=== PATIENT | female | born 1975 | race Caucasian/White ===

== ENCOUNTER 2016-09-01 08:52 | Day surgery (SDC) | payer BC ==
[2016-08-31 17:51] VITALS: BMI 34.0
--- NOTE | 2016-09-01 10:07 | HP ---
[facility]ellite [facility] - Chief Complaint Chief Complaint: Abdominal pain History of Present Illness: 41 female seen in the office for episode of abdominal pain for which she had pressented to the ER in 06/2016. + large gallstone with biliary colic History Source: Patient Limitations to Obtaining History: No Limitations - Past Medical History Allergies/Adverse Reactions: Allergies Allergy/AdvReac Type Severity Reaction Status Date / Time Iodinated Contrast Media - Allergy Severe Rash Verified 08/31/16 17:44 Oral and methotrexate [Methotrexate] Allergy Severe Rash Verified 08/31/16 17:44 ...LMP: 07/23/16 Dermatology: Yes: Psoriasis - Current Medications Current Medications: Home Medications Medication Instructions Recorded Etanercept [Enbrel] 25 mg SQ WEEKLY 07/22/16 Acetaminophen W/ Codeine #3 1 tab PO Q6H #28 tablet MDD 4 09/01/16 [Tylenol # 3 -] Docusate Sodium [Colace -] 100 mg PO TID #90 capsule 09/01/16 Satellite Physical Exam - Physical Examination General Appearance: Well Nourished Lung: Clear to auscultation Heart: Regular rate & rhythm Abdomen: Soft, No tenderness Neurological: Alert, Oriented Satellite Impression/Plan - Impression/Plan Impression: History of biliary colic, large gallstone Operative Procedure: Robotic laparoscopic possible open cholecystectomy Date to be Performed: 09/01/16
[2016-09-01] MEDS ORDERED: BUPIVACAINE HCL/PF 0.5% (5MG/ML) 10 ML VIAL ONE (10:36)
[2016-09-01] MEDS ORDERED: PROPOFOL 20 ML ONE ×2 (10:48)
[2016-09-01] MEDS ORDERED: MIDAZOLAM HCL 2 MG/2 ML SINGLE DOSE VIAL ONE (10:48)
[2016-09-01] MEDS ORDERED: ROCURONIUM BROMIDE 50 MG/5 ML VIAL ONE (10:48)
[2016-09-01] MEDS ORDERED: DESFLURANE GAS 240 ML BOTTLE IH ONE (10:53)
[2016-09-01] MEDS ORDERED: ceFAZolin SODIUM 1 GM VIAL IVPB ONE (11:27)
[2016-09-01] MEDS ORDERED: ONDANSETRON 4 MG/2 ML VIAL IVPUSH PRN (11:40)
[2016-09-01] MEDS ORDERED: oxyCODONE HCL 5 MG TABLET PO PRN (11:40)
[2016-09-01] MEDS ORDERED: LACTATED RINGERS SOLUTION 1,000 ML IV SCH (11:45)
[2016-09-01] MEDS ORDERED: GLYCOPYRROLATE 0.2 MG/1 ML VIAL ONE (12:33)
[2016-09-01] MEDS ORDERED: NEOSTIGMINE METHYLSULFATE 0.5 MG/ML - 10 ML MDV ONE (12:33)
--- NOTE | 2016-09-01 13:37 | OP ---
Operative Note - Note: Operative Date: 09/01/16 Pre-Operative Diagnosis: Biliary colic, cholelithiasis Operation: Robotic cholecystectomy Post-Operative Diagnosis: Same as Pre-op Surgeon: Anatoliy Miller Rotary Adjuster: Rani Whitten Anesthesia: General Specimens Removed: Gallbladder Estimated Blood Loss (mls): 100 Operative Report Dictated: Yes
[2016-09-01] MEDS ORDERED: PROMETHAZINE HCL 25 MG/1 ML VIAL ONE (13:39)
[2016-09-01] MEDS ORDERED: PROMETHAZINE HCL 25 MG/1 ML VIAL IVPUSH ONE (14:39)
[2016-09-01] MEDS ORDERED: HYDROmorphone HCL CARPU-JECT 1 MG/1 ML DISP.SYRIN IVPB PRN (14:42)
[2016-09-01] MEDS ORDERED: ACETAMINOPHEN 325 MG TABLET (FP) PO PRN (14:42)
[2016-09-01] MEDS ORDERED: oxyCODONE HCL 5 MG TABLET ONE (14:43)
[2016-09-01] MEDS ORDERED: D5-1/2NS+20 MEQ KCL - 1,000 ML IV SCH (14:45)
--- NOTE | 2016-09-01 15:13 | SURG ---
Surgery Buckle Stapler Note Buckle Stapler: Rani Whitten PA-C Date of Service: 09/01/16 Diagnosis: Biliary colic, cholelithiasis Procedure: Robotic cholecystectomy I was present for the entirety of the operative procedure. For further detail, please refer to operative report. Visit type - Case Type Case Type: Scheduled Admission - New patient This patient is new to me today: Yes Date on this admission: 09/01/16
[2016-09-01 16:20] VITALS: BP 134/63; PULSE 73
[2016-09-01 18:30] VITALS: TEMP 98.6
--- NOTE | 2016-09-02 06:43 | OP ---
DATE OF OPERATION: 09/01/2016 SURGEON: Anatoliy Miller MD MED PEDS: REJI Childers PREOPERATIVE DIAGNOSES: Biliary colic and cholelithiasis. POSTOPERATIVE DIAGNOSES: Biliary colic and cholelithiasis. PROCEDURE: Robotic cholecystectomy. ESTIMATED BLOOD LOSS: 100 mL. DRAINS: None. ANESTHESIA: GET. SPECIMEN: Gallbladder. REASON FOR PROCEDURE: This is a 41-year-old female who was seen in the emergency room for abdominal pain back in June 2016. She was found to have a large gallstone with evidence of biliary colic. She presented to the office for followup and was scheduled for a robotic, possible open cholecystectomy. The risks and benefits of the procedure were explained, these including bleeding, infection, hernia, VA, DVT, PE, injury to surrounding abdominal structures, including the bowel, colon, liver, bile duct, vessel injury, nerve injury, retained stone, and bile leak as some of the complications. She understood and signed informed consent. DESCRIPTION OF PROCEDURE: Patient was placed supine on the operating room table. She underwent general endotracheal intubation. Of note, there were some vesicles noted on her skin which was seen in the preoperative area from her underlying psoriasis. The abdomen was prepped and draped in the usual sterile fashion. Timeout was performed. A periumbilical incision was made, and an 8-mm optical trocar was placed under direct visualization with a laparoscope. Pneumoperitoneum was established. An 8-mm robotic trocar was placed 7 cm to the left of the umbilicus, and two 8-mm trocars were placed in the right lower abdominal wall. The patient was placed in reverse Trendelenburg right side up position. The robot was brought over the field and docked. Dissection was then performed at the console. The gallbladder was retracted cephalad and laterally. The overlying peritoneum was dissected. The cystic duct followed by the cystic artery was circumferentially dissected. FireFly technology could not be used because the patient was allergic to IODINE. However, the anatomy was clearly noted. In addition, there was noted to be a bleeding posterior vessel which was clipped and controlled. The cystic duct followed by the cystic artery was clipped and transected. The gallbladder was removed off the liver bed using electrocautery. Copious irrigation and suction was performed until clear and hemostasis was achieved using hook electrocautery. In addition, a Surgicel dressing was placed within the gallbladder fossa to aid with hemostasis. Further copious irrigation and suction was performed above the liver and in the right upper quadrant until clear. Again, hemostasis was noted. At this point, the gallbladder was placed in an EndoCatch bag. This was removed from the periumbilical incision. The specimen was inspected and again a large gallstone noted. The fascia at the periumbilical incision was closed after the robotic instruments were removed and the robot was undocked. The fascia at this area was closed using 0 Vicryl suture x2 with the Osmel-Sae device. The fascia was noted to be completely closed. The deep subcutaneous tissue was then closed using a 3-0 Vicryl suture. All further trocars were removed after pneumoperitoneum was desufflated. Marcaine was injected at all sites. All skin incisions were closed using 4-0 Biosyn. Sterile dressings were applied. The patient tolerated the procedure well and was transferred to the recovery room in stable condition. Phill BETHEA/[id number]
--- NOTE | 2016-09-04 13:39 | PATH ---
Surgical Pathology Report Patient Name: TOMEKA PIEDRA [facility]. Rec. #: [id number] /Age/Gender: 1975 (Age: 41) / F Account: [id number] Location: [facility] SURGICAL Taken: 09/01/2016 Received: 09/01/2016 Reported: 09/04/2016 Physicians: Anatoliy Miller M.D. Specimen(s) Received GALLBLADDER Clinical History Cholelithiasis Final Diagnosis GALLBLADDER, CHOLECYSTECTOMY: CHRONIC CHOLECYSTITIS AND CHOLELITHIASIS. Electronically Signed Tunde Schaefer M.D. Gross Description Received in formalin, labeled "gallbladder" is a 7.5 x 2.3 x 2.3 cm gallbladder with a 0.2 cm in length portion of cystic duct attached. The outer surface is rivas-pink with a focal defect and varies from smooth to shaggy. The lumen contains green-brown, tenacious bile as well as a 3.4 cm in greatest dimension green, ovoid cholelith. The mucosa is rivas-red and focally eroded. The wall of the gallbladder averages 0.2 cm in thickness. Electronic Health Records Specialist sections are submitted in one cassette. /09/01/201609/01/2016
== END 2016-09-01 16:20 | disposition home or self-care (01) ==
LOC: JASU-SURG 08:52
PROVIDERS: ATTEND Surgery
PROC: 8E0W4CZ Robotic Assisted Procedure of Trunk Region, Percutaneous Endoscopic Approach (ICD-10-PCS; 2016-09-01)
PROC: 0FT44ZZ Resection of Gallbladder, Percutaneous Endoscopic Approach (ICD-10-PCS; principal; 2016-09-01 11:00)
DX: K80.20 Calculus of gallbladder without cholecystitis without obstruction (principal)
CPT/HCPCS: 47562; S2900; 36415; 84702; 86850; 86900; 86901; 88304-TC; 94760

== ENCOUNTER 2022-10-05 22:04 | Emergency (ER) | payer BC ==
[2022-10-05 22:09] VITALS: RESP 20; TEMP 98.5; BMI 32.5
[2022-10-05] MEDS ORDERED: ONDANSETRON *ODT* 4 MG TABLET SL ONE (23:15)
[2022-10-05] MEDS ORDERED: FAMOTIDINE 20 MG/50 ML IVPB 20 MG/50 ML MG IVPB ONE (23:21)
[2022-10-05] MEDS ORDERED: SODIUM CHLORIDE 0.9% 500 ML INFUS.BAG IV ONE (23:21)
[2022-10-05] MEDS ORDERED: ONDANSETRON 4 MG/2 ML VIAL IVPUSH ONE (23:38)
[2022-10-05] MEDS ORDERED: ONDANSETRON 4 MG/2 ML VIAL ONE (23:43)
[2022-10-05] MEDS ORDERED: FAMOTIDINE 10 MG/ML VIAL IVPB ONE (23:43)
[2022-10-06 00:45] LABS: BASO % 0.2 % (0-2.0); EOS % 0.1 % (0-4.5); HEMATOCRIT 43.5 % (32.4-45.2); HEMOGLOBIN 14.9 GM/dL (10.7-15.3); LYMPH % 11.7 % (8-40); MCH 30.8 pg (25.7-33.7); MCHC 34.2 g/dl (32.0-36.0); MEAN CELL VOLUME 90.1 fl (80-96); MEAN PLT VOLUME 7.5 fl (7.5-11.1); MONO % 3.8 % (3.8-10.2); NEUT % 84.2 % (42.8-82.8); PLATELET COUNT 388 10^3/uL (134-434); RBC 4.82 M/mm3 (3.60-5.2); RDW 14.1 % (11.6-15.6); WHITE BLOOD COUNT 9.7 K/mm3 (4.0-10.0)
[2022-10-06 01:05] LABS: CALCIUM 9.8 mg/dL (8.5-10.1)
[2022-10-06 01:06] LABS: ALBUMIN 3.8 g/dl (3.4-5.0); BLOOD UREA NITROGEN 15.5 mg/dL (7-18)
[2022-10-06 01:09] LABS: CREATININE 0.6 mg/dL (0.55-1.3)
[2022-10-06 01:11] LABS: BILIRUBIN,TOTAL 0.5 mg/dL (0.2-1); TOT PROT 8.1 g/dl (6.4-8.2)
[2022-10-06 01:27] VITALS: BP 152/107; PULSE 89
== END 2022-10-06 02:19 | disposition home or self-care (01) ==
LOC: JER 22:04
PROC: 3E033GC Introduction of Other Therapeutic Substance into Peripheral Vein, Percutaneous Approach (ICD-10-PCS; principal; 2022-10-05)
DX: R11.2 Nausea with vomiting, unspecified (principal)
CPT/HCPCS: 36415; 71046-TC-FY; 80053; 85025; 99284-25